=== PATIENT | male | born 1955 | race Caucasian/White ===

== ENCOUNTER 2020-10-12 12:31 | Outpatient (CLI) | payer BC, SELFPAY ==
[2020-10-12 14:23] LABS: Abs Immature Grans 0.02 10^3/uL (0.0-0.06); Absolute Basophil Count 0.02 10^3/uL (0.0-0.2); Absolute Eosinophil Count 0.03 10^3/uL (0.0-0.7); Absolute Lymphocyte Count 0.77 10^3/uL (1.2-3.4); Basophils % 0.3; Eosinophils % 0.4; HCT 37.1 % (40.0-50.0); HGB 12.1 g/dL (13.5-17.5); Immature Grans % 0.3; Lymphocytes % 10.5; MCHC 32.6 % (32.0-36.0); MCV 82.8 fL (80-95); Monocytes % 10.9; Neutrophils % 77.6; Nucleated RBC 0 %; Platelet Count 206 10^3/uL (130-400); RBC 4.48 10^6/uL (4.36-5.78); RDW 13.7 % (11.8-14.1); RDW-SD 41.1 fL; WBC 7.34 10^3/uL (4.4-10.8)
[2020-10-12 14:31] LABS: INR 1.4 (0.9-1.1); Prothrombin Time 14.2 sec (9.3-11.0)
[2020-10-12 15:25] LABS: ALT 29 U/L (16-63); AST 111 U/L (15-37); Albumin 2.8 g/dL (3.4-5.0); Alkaline Phosphatase 159 U/L (46-116); Anion Gap 7.2 mmol/L (3-11); BUN 8 mg/dL (7-18); Bilirubin, Total 1.9 mg/dL (0.2-1.0); CO2 26.8 mmol/L (21.0-32.0); CREATININE 0.84 mg/dL (0.70-1.30); Chloride 97 mmol/L (98-107); Glucose 96 mg/dL (74-106); Potassium 4.5 mmol/L (3.5-5.1); Sodium 131 mmol/L (136-145); Total Protein 6.8 g/dL (6.4-8.2)
[2020-10-15 14:10] LABS: HCV RNA Qualitative Undetected (Undetected)
== END 2020-10-12 12:51 ==
PROVIDERS: PCP Family Medicine; Visit Provider Nurse Practitioner Adult Health
DX: K74.60 Unspecified cirrhosis of liver (principal)
CPT/HCPCS: 36415; 80053; 86803; 87522; 82105; 85025; 85610